=== PATIENT | male | born 1995 | race African-American/Black ===

== ENCOUNTER 2019-02-07 22:43 | Emergency (ER) | payer BC, OTHER ==
[2019-02-07 23:00] VITALS: BP 134/65; PULSE 85; TEMP 98.9; BMI 31.2
[2019-02-08] MEDS ORDERED: IBUPROFEN 400 MG TABLET (FP) PO ONE ×2 (01:21→01:49)
--- NOTE | 2019-02-08 01:24 | PDOC ---
History of Present Illness - General Chief Complaint: Injury Stated Complaint: INJURY TO LFT ANKLE Time Seen by Provider: 02/08/19 01:09 History Source: Patient - History of Present Illness Initial Comments: 02/08/19 02:18 23 YEAR OLD MALE C.O LEFT ANKLE PAIN AFTER BEING KICKED IN TH E BACK OF FOOT WHILE PLAYING BASKETBALL. MIAN TRAUMA AND INJURY. Past History - Past Medical History Allergies/Adverse Reactions: Allergies Allergy/AdvReac Type Severity Reaction Status Date / Time No Known Allergies Allergy Verified 02/07/19 22:57 Home Medications: Ambulatory Orders No Home Medications 0 dose .ROUTE UTDICT 08/07/12 COPD: No - Suicide/Smoking/Psychosocial Hx Smoking Status: No Smoking History: Never smoked Number of Cigarettes Smoked Daily: 0 Review of Systems - Review of Systems Able to Perform ROS?: Yes Is the patient limited [place] proficient: No Musculoskeletal: Yes: Other (ankle pain) *Physical Exam - Vital Signs Last Vital Signs Temp Pulse Resp BP Pulse Ox 98.9 F 85 18 134/65 100 02/07/19 22:57 02/07/19 22:57 02/07/19 22:57 02/07/19 22:57 02/07/19 22:57 - Physical Exam General Appearance: Yes: Appropriately Dressed Musculoskeletal: positive: Other (left ankle pain with rom. no deformity) Extremity: positive: Normal Capillary Refill, Normal Inspection, Normal Range of Motion Integumentary: positive: Normal Color, Dry, Warm Moderate Sedation - Procedure Monitoring Vital Signs: Procedure Monitoring Vital Signs Temperature 98.9 F 02/07/19 22:57 Pulse Rate 85 02/07/19 22:57 Respiratory Rate 18 02/07/19 22:57 Blood Pressure 134/65 02/07/19 22:57 O2 Sat by Pulse Oximetry (%) 100 02/07/19 22:57 Progress Note - Progress Note Progress Note: A: ankle sprain P: [facility] follow aircast *DC/Admit/Observation/Transfer Diagnosis at time of Disposition: Ankle pain Qualifiers: Chronicity: acute Laterality: left Qualified Code(s): M25.572 - Pain in left ankle and joints of left foot High ankle sprain Qualifiers: Encounter type: initial encounter Laterality: left Qualified Code(s): S93.432A - Sprain of tibiofibular ligament of left ankle, initial encounter - Discharge Dispostion Disposition: HOME - Referrals Referrals: Pato Pascual MD [Primary Care Provider] - Yao Goldsmith MD [Staff Physician] - - Patient Instructions Printed Discharge Instructions: DI for Ankle Sprain Additional Instructions: rest ice elevate keep ankle splint on for comfort. follow up with an orthopedic doctor in 1 week . - Post Discharge Activity Forms/Work/School Notes: Back to Work
--- NOTE | 2019-02-08 01:32 | PDOC ---
*Physical Exam - Vital Signs Last Vital Signs Temp Pulse Resp BP Pulse Ox 98.9 F 85 18 134/65 100 02/07/19 22:57 02/07/19 22:57 02/07/19 22:57 02/07/19 22:57 02/07/19 22:57 Medical Decision Making - Medical Decision Making 02/08/19 01:33 Patient seen by the advanced practice provider under my direct supervision. Ancillary testing reviewed as necessary. I agree with plan as outlined by the advanced practice provider. *DC/Admit/Observation/Transfer Diagnosis at time of Disposition: Ankle pain - Referrals Referrals: Pato Pascual MD [Primary Care Provider] - - Patient Instructions - Post Discharge Activity
== END 2019-02-08 02:46 | disposition home or self-care (01) ==
LOC: JER 22:43
PROC: 2W3RX1Z Immobilization of Left Lower Leg using Splint (ICD-10-PCS; principal; 2019-02-07)
DX: S93.432A Sprain of tibiofibular ligament of left ankle, initial encounter (principal); W50.0XXA Accidental hit or strike by another person, initial encounter; Y93.67 Activity, basketball; Y92.310 Basketball court as the place of occurrence of the external cause; Y99.8 Other external cause status
CPT/HCPCS: 73610-TC-LT-FY; 73630-TC-LT; 99281-25